=== PATIENT | female | born 1990 | race Caucasian/White ===

== ENCOUNTER 2018-06-14 19:44 | Emergency (ER) | payer MEDICAID ==
[~2018-06-14] VITALS: Ht 160 cm; Wt 63.1 kg
[2018-06-14 21:29] VITALS: BP 104/45
[2018-06-14] MEDS ORDERED: IBUPROFEN 600MG TABLET PO ONE (21:30)
== END 2018-06-14 21:48 | disposition home or self-care (01) ==
LOC: ER 19:44
DX: N63.41 Unspecified lump in right breast, subareolar (principal); N64.4 Mastodynia
CPT/HCPCS: 81025; 99282